=== PATIENT | female | born 1975 | race Caucasian/White ===

== ENCOUNTER 2016-09-25 16:58 | Emergency (ER) | payer MEDICAID ==
[~2016-09-25] VITALS: Ht 167.6 cm; Wt 47.6 kg
[2016-09-25 17:14] VITALS: BP 135/81
[2016-09-25] MEDS ORDERED: DEXAMETHASONE SOD PHOS 20 MG/5 ML VIAL. IM ONE (17:30)
--- NOTE | 2016-09-25 17:42 | PHYS DOC ---
Past Medical History Past Medical History: Diabetes-Type I Past Surgical History: Tubal ligation Alcohol Use: None Drug Use: None Adult General Chief Complaint Chief Complaint: HAND PROBLEM HPI HPI Patient is a 41 year old female with history of diabetes type 1 who presents with chronic blisters and irritation on bilateral hands for 1 month from dermatitis, patient states her rash flared up in the last couple days. Patient states she is following up with her own PCP for this. She states she has been given a steroid injection before which helped when she had a flare up. She states she is supposed to follow-up with the site planner in October. Review of Systems Review of Systems Constitutional: Denies fever or chills [] Eyes: Denies change in visual acuity, redness, or eye pain [] HENT: Denies nasal congestion or sore throat [] Musculoskeletal: Denies back pain or joint pain [] Integument: Chronic blisters and irritations to bilateral hands Neurologic: Denies headache, focal weakness or sensory changes [] Endocrine: Denies polyuria or polydipsia [] Current Medications Current Medications Current Medications Medications (Trade) Dose Ordered Sig/Christina Start Time Stop Time Status Last Admin Dose Admin Dexamethasone Sodium Phosphate (Decadron) 10 mg 1X ONCE 09/25/16 17:30 09/25/16 17:31 DC Allergies Allergies Allergies Coded Allergies Type Severity Reaction Last Updated Verified No Known Drug Allergies 09/25/16 No Physical Exam Physical Exam Constitutional: Well developed, well nourished, no acute distress, non-toxic appearance. [] HENT: Normocephalic, atraumatic, bilateral external ears normal, oropharynx moist, no oral exudates, nose normal. [] Eyes: PERRLA, EOMI, conjunctiva normal, no discharge. [] Skin: Bilateral hands especially in between the webspaces and PIP and DIP joints with what appears to be lesions from chronic eczema. None of them appears infected. Back: No tenderness, no CVA tenderness. [] Extremities: No tenderness, no cyanosis, no clubbing, ROM intact, no edema. [] Neurologic: Alert and oriented X 3, normal motor function, normal sensory function, no focal deficits noted. [] Psychologic: Affect normal, judgement normal, mood normal. [] Current Patient Data Vital Signs Vital Signs Date Time Temp Pulse Resp B/P (MAP) Pulse Ox O2 Delivery O2 Flow Rate FiO2 09/25/16 17:14 98.2 94 18 98 Room Air 98.2 EKG EKG [] Radiology/Procedures Radiology/Procedures [] Course & Med Decision Making Course & Med Decision Making Pertinent Labs and Imaging studies reviewed. (See chart for details) Patient is in the ED with a flareup of dermatitis. She requested a steroid injection which she states has helped her before when she had a flare up. We were able to give a Decadron IM in the ED. She was discharged with instructions to follow-up with her PCP as well as site planner. She has topical medications which she uses on chronic basis. Dragon Disclaimer Dragon Disclaimer This electronic medical record was generated, in whole or in part, using a voice recognition dictation system. Departure Departure Impression: Primary Impression: Hand dermatitis Disposition: 01 HOME, SELF-CARE Condition: STABLE Patient Instructions: Hand Dermatitis Additional Instructions: You were seen for on going hand dermatitis. You were given a steroid injection in the ED. Continue using your regular medications at home and follow-up with your own primary care doctor as well as the site planner next week. SHADE MACKEY CRIPPLE CUTTER September 25, 2016 17:42
== END 2016-09-25 17:53 | disposition home or self-care (01) ==
LOC: ER 17:49
DX: L30.9 Dermatitis, unspecified (principal); E10.9 Type 1 diabetes mellitus without complications
CPT/HCPCS: 96372; 99283; J1100

== ENCOUNTER 2016-12-21 14:10 | Emergency (ER) | payer MEDICAID ==
[~2016-12-21] VITALS: Ht 167.6 cm; Wt 51.3 kg
[2016-12-21 14:25] VITALS: BP 125/75
[2016-12-21] MEDS ORDERED: CETIRIZINE HCL 10 MG TABLET. PO STA (14:33)
[2016-12-21] MEDS ORDERED: DEXAMETHASONE SOD PHOS 20 MG/5 ML VIAL. IM ONE (14:45)
--- NOTE | 2016-12-21 15:12 | PHYS DOC ---
Past Medical History Past Medical History: Diabetes-Type I Past Surgical History: Tubal ligation Additional Information: PPD Alcohol Use: None Drug Use: None Adult General Chief Complaint Chief Complaint: INSECT BITE HPI HPI Patient is a 41-year-old female with history of diabetes take 2 who presents with wasp stings to the right hand that occurred yesterday. Patient denies any anaphylactic reaction symptoms. Review of Systems Review of Systems Constitutional: Denies fever or chills [] Eyes: Denies change in visual acuity, redness, or eye pain [] HENT: Denies nasal congestion or sore throat [] Respiratory: Denies cough or shortness of breath [] Cardiovascular: No additional information not addressed in HPI [] GI: Denies abdominal pain, nausea, vomiting, bloody stools or diarrhea [] : Denies dysuria or hematuria [] Musculoskeletal: Denies back pain or joint pain [] Integument: Wasp sting to the right hand Neurologic: Denies headache, focal weakness or sensory changes [] Endocrine: Denies polyuria or polydipsia [] Current Medications Current Medications Current Medications Medications (Trade) Dose Ordered Sig/Christina Start Time Stop Time Status Last Admin Dose Admin Cetirizine HCl (ZyrTEC) 10 mg 1X STAT 12/21/16 14:33 12/21/16 14:36 DC 12/21/16 14:46 10 MG Dexamethasone Sodium Phosphate (Decadron) 10 mg 1X ONCE 12/21/16 14:45 12/21/16 14:46 DC 12/21/16 14:47 10 MG Allergies Allergies Allergies Coded Allergies Type Severity Reaction Last Updated Verified Sulfa (Sulfonamide Antibiotics) Allergy Unknown 12/21/16 Yes Physical Exam Physical Exam Constitutional: Well developed, well nourished, no acute distress, non-toxic appearance. [] HENT: Normocephalic, atraumatic, bilateral external ears normal, oropharynx moist, no oral exudates, nose normal. [] Eyes: PERRLA, EOMI, conjunctiva normal, no discharge. [] Neck: Normal range of motion, no tenderness, supple, no stridor. [] Cardiovascular:Heart rate regular rhythm, no murmur [] Lungs & Thorax: Bilateral breath sounds clear to auscultation [] Abdomen: Bowel sounds normal, soft, no tenderness, no masses, no pulsatile masses. [] Skin: Right dorsal hand with mild soft tissue swelling and erythema consistent with a wasp sting. Back: No tenderness, no CVA tenderness. [] Extremities: No tenderness, no cyanosis, no clubbing, ROM intact, no edema. [] Neurologic: Alert and oriented X 3, normal motor function, normal sensory function, no focal deficits noted. [] Psychologic: Affect normal, judgement normal, mood normal. [] Current Patient Data Vital Signs Vital Signs Date Time Temp Pulse Resp B/P (MAP) Pulse Ox O2 Delivery O2 Flow Rate FiO2 12/21/16 14:25 99.0 98 20 95 Room Air 99.0 EKG EKG [] Radiology/Procedures Radiology/Procedures [] Course & Med Decision Making Course & Med Decision Making Pertinent Labs and Imaging studies reviewed. (See chart for details) Patient is in the ED with a wasp stings on the right hand. She was put on prednisone for 5 days. Benadryl also recommended. Follow-up with primary care doctor in 1-2 weeks. I did put her on cephalexin prophylaxis. She was provided return precautions and discharged in stable condition. Dragon Disclaimer Dragon Disclaimer This electronic medical record was generated, in whole or in part, using a voice recognition dictation system. Departure Departure Impression: Primary Impression: Wasp sting Disposition: 01 HOME, SELF-CARE Condition: STABLE Referrals: YAAKOV VALE DO (PCP) follow up with your doctor in one week Patient Instructions: Insect Bite, [id number] Additional Instructions: You were seen for wasp sting on the right hand. Keep the area clean and dry. Complete your prednisone. Monitor the area for any worsening condition and come back to the ED. Come back to the ED if you have any concerning symptoms including but not limited to throat and tongue swelling, Shortness of breath. Follow-up with your doctor in one week. Scripts Prednisone (PREDNISONE) 50 Mg Tablet 1 TAB PO DAILY, #5 TAB Prov: SHADE MACKEY APRN 12/21/16 Cephalexin (CEPHALEXIN) 500 Mg Tablet 1 TAB PO QID, #40 TAB Prov: SHADE MACKEY APRN 12/21/16 Problem Qualifiers Primary Impression: Wasp sting Encounter type: initial encounter Injury intent: accidental or unintentional Qualified Codes: T63.461A - Toxic effect of venom of wasps, accidental (unintentional), initial encounter SHADE MACKEY APRN Dec 21, 2016 15:12
[2016-12-21] MEDS ORDERED: PRED50TA PO (15:19)
[2016-12-21] MEDS ORDERED: CEPH500T PO (15:19)
== END 2016-12-21 15:30 | disposition home or self-care (01) ==
LOC: ER 14:10
DX: T63.461A Toxic effect of venom of wasps, accidental (unintentional), initial encounter (principal); Y92.89 Other specified places as the place of occurrence of the external cause; Z88.2 Allergy status to sulfonamides; E10.9 Type 1 diabetes mellitus without complications
CPT/HCPCS: 96372; 99283; J1100